=== PATIENT | female | born 1995 | race Asian ===

== ENCOUNTER 2018-06-30 01:13 | Emergency (ER) | payer MEDICAID ==
[~2018-06-30] VITALS: Ht 160 cm; Wt 41.7 kg
[2018-06-30 01:17] VITALS: BP_SYST 110
[2018-06-30 02:18] LABS: BILIRUBIN,URINE 1+ (NEGATIVE); CLARITY/URINE CLEAR (CLEAR); COLOR,URINE YELLOW (YELLOW); GLUCOSE,URINE NEGATIVE (NEGATIVE); KETONES,URINE 1+ (NEGATIVE); LEUKOCYTE ESTERASE ,URINE NEGATIVE (NEGATIVE); NITRITE, URINE NEGATIVE (NEGATIVE); PROTEIN URINE NEGATIVE (NEGATIVE); UROBILINOGEN,URINE 0.2 (0.2-1.0)
[2018-06-30 02:19] LABS: BLOOD, URINE TRACE (NEGATIVE)
[2018-06-30 02:24] LABS: HEMATOCRIT 32.6 % (36-48); HEMOGLOBIN 10.3 g/dL (12.0-16.0); MEAN CORPUSCULAR HEMOGLOBIN 19 pg (27-31); MEAN CORPUSCULAR HGB CONC 32 % (32-36); MEAN CORPUSCULAR VOLUME 60 fL (79.0-98.0); PLATELET COUNT (AUTO) 327 K/uL (130-430); RED BLOOD CELL COUNT(AUTO) 5.46 MIL/uL (4.2-6.2); RED CELL DISTRIBUTION WIDTH 16.2 % (9.0-15.0)
[2018-06-30 02:25] LABS: BASOPHILS # (AUTO) 0.1 K/uL (0.0-0.2); BASOPHILS % (AUTO) 0.7 % (0.0-2.0); LYMPHOCYTES # (AUTO) 1.6 K/uL (1.0-5.5); LYMPHOCYTES % (AUTO) 18.1 % (20.5-51.5); MONOCYTES # (AUTO) 0.8 K/uL (0.0-1.0); MONOCYTES % (AUTO) 8.5 % (1.7-9.3); NEUTROPHILS # (AUTO) 6.5 K/uL (1.8-7.7); NEUTROPHILS % (AUTO) 72.7 % (40.0-70.0)
[2018-06-30 02:37] LABS: BACTERIA,URINE FEW /HPF (None Seen)
[2018-06-30 02:44] LABS: CALCIUM 9.3 mg/dL (8.4-11.0); CREATININE 0.72 mg/dL (0.55-1.30); POTASSIUM 3.5 mmol/L (3.5-5.1)
[2018-06-30 02:50] LABS: ALBUMIN 3.6 g/dL (3.4-4.8); TOTAL BILIRUBIN 0.8 mg/dL (0.0-1.0)
[2018-06-30 03:16] VITALS: BP_SYST 118
== END 2018-06-30 03:16 | disposition home or self-care (01) ==
LOC: SED 01:13
DX: R11.10 Vomiting, unspecified (principal); R50.9 Fever, unspecified
CPT/HCPCS: 36415; 80053; 81000-TC; 85025; 86710; 99283

== ENCOUNTER 2018-10-13 23:22 | Emergency (ER) | payer MEDICAID ==
[~2018-10-13] VITALS: Ht 160 cm; Wt 41.3 kg
[2018-10-13 23:30] VITALS: BP_SYST 130
== END 2018-10-14 00:28 | disposition left against medical advice (07) ==
LOC: SED 23:22
DX: R10.9 Unspecified abdominal pain (principal); R30.0 Dysuria; R35.0 Frequency of micturition; R11.10 Vomiting, unspecified; Z53.21 Procedure and treatment not carried out due to patient leaving prior to being seen by health care provider

== ENCOUNTER 2018-10-18 23:11 | Emergency (ER) | payer MEDICAID ==
[~2018-10-18] VITALS: Ht 154.9 cm; Wt 49.9 kg
[2018-10-18 23:20] VITALS: BP_SYST 135
[2018-10-18] MEDS ORDERED: NACL 0.9% 1,000 ML IV ONE (23:43)
[2018-10-18] MEDS ORDERED: PANTOPRAZOLE SODIUM 40 MG/VIAL (PROTONIX) IVP ONE (23:45)
[2018-10-19 00:13] LABS: BILIRUBIN,URINE NEGATIVE (NEGATIVE); BLOOD, URINE NEGATIVE (NEGATIVE); CLARITY/URINE SL HAZY (CLEAR); COLOR,URINE YELLOW (YELLOW); GLUCOSE,URINE NEGATIVE (NEGATIVE); KETONES,URINE NEGATIVE (NEGATIVE); LEUKOCYTE ESTERASE ,URINE NEGATIVE (NEGATIVE); NITRITE, URINE NEGATIVE (NEGATIVE); PH,URINE 5.5 (5.0-8.0); PROTEIN URINE NEGATIVE (NEGATIVE); UROBILINOGEN,URINE 0.2 (0.2-1.0)
[2018-10-19 00:31] LABS: HEMOGLOBIN 11.3 g/dL (12.0-16.0); MEAN CORPUSCULAR HGB CONC 32 % (32-36); RED BLOOD CELL COUNT(AUTO) 5.75 MIL/uL (4.2-6.2); WHITE BLOOD COUNT (AUTO) 7.1 K/uL (4.8-10.8)
[2018-10-19 00:43] LABS: CREATININE 0.62 mg/dL (0.55-1.30); POTASSIUM 3.8 mmol/L (3.5-5.1)
[2018-10-19 00:46] LABS: BASOPHILS # (AUTO) 0.1 K/uL (0.0-0.2); BASOPHILS % (AUTO) 0.7 % (0.0-2.0); EOSINOPHILS # (AUTO) 0.1 K/uL (0.0-0.4); EOSINOPHILS % (AUTO) 1.4 % (0.0-4.0); HEMATOCRIT 35.5 % (36-48); LYMPHOCYTES # (AUTO) 3.4 K/uL (1.0-5.5); LYMPHOCYTES % (AUTO) 48.5 % (20.5-51.5); MEAN CORPUSCULAR HEMOGLOBIN 20 pg (27-31); MEAN CORPUSCULAR VOLUME 62 fL (79.0-98.0); MONOCYTES # (AUTO) 0.5 K/uL (0.0-1.0); MONOCYTES % (AUTO) 7.1 % (1.7-9.3); NEUTROPHILS % (AUTO) 42.3 % (40.0-70.0); PLATELET COUNT (AUTO) 320 K/uL (130-430); RED CELL DISTRIBUTION WIDTH 16.3 % (9.0-15.0)
[2018-10-19 00:49] LABS: ALBUMIN 4.1 g/dL (3.4-4.8); TOTAL BILIRUBIN 0.8 mg/dL (0.0-1.0)
[2018-10-19] MEDS ORDERED: IOHEXOL 100 ML IV ONE (01:03)
[2018-10-19 01:52] VITALS: BP_SYST 124
== END 2018-10-19 01:52 | disposition home or self-care (01) ==
LOC: SED 23:11
DX: R10.31 Right lower quadrant pain (principal); R10.32 Left lower quadrant pain
CPT/HCPCS: 36415; 74177; 80053; 81003; 81025; 83690; 85025; 96361; 96374; 99284; C9113; J7030; Q9967

== ENCOUNTER 2019-01-31 00:43 | Emergency (ER) | payer MEDICAID ==
[~2019-01-31] VITALS: Ht 160 cm; Wt 40.8 kg
[2019-01-31 00:43] VITALS: BP_SYST 114
--- NOTE | 2019-01-31 00:43 | NUR ---
Patient to ER bed 08 to gown for evaluation. Side rails up.
--- NOTE | 2019-01-31 00:58 | NUR ---
Pt is AAO x 4 and ambulatory c/o centralized abdominal pain that started around 8pm. Pt states she has had about 5-6 episodes of vomiting. Per pt, after vomiting abdomen feels a little better but then comes back right before vomiting. Pt denies fever, dysura, and diarrhea/constipation. No other injuries/complaints per patient or noted.
--- NOTE | 2019-01-31 01:00 | NUR ---
Dr. Vences at bedside.
[2019-01-31] MEDS ORDERED: NACL 0.9% 1,000 ML IV ONE (01:09)
[2019-01-31] MEDS ORDERED: KETOROLAC TROMETHAMINE 15 MG VIAL IVP ONE (01:15)
[2019-01-31] MEDS ORDERED: ONDANSETRON HCL 4 MG/2 ML VIAL IVP ONE (01:15)
[2019-01-31 01:41] LABS: MEAN CORPUSCULAR VOLUME 62 fL (79.0-98.0); MONOCYTES # (AUTO) 0.5 K/uL (0.0-1.0)
[2019-01-31 01:46] LABS: BASOPHILS % (AUTO) 0.3 % (0.0-2.0); HEMATOCRIT 33.2 % (36-48); HEMOGLOBIN 10.8 g/dL (12.0-16.0); LYMPHOCYTES # (AUTO) 1.5 K/uL (1.0-5.5); LYMPHOCYTES % (AUTO) 14.1 % (20.5-51.5); MEAN CORPUSCULAR HEMOGLOBIN 20 pg (27-31); MEAN CORPUSCULAR HGB CONC 33 % (32-36); MONOCYTES % (AUTO) 4.6 % (1.7-9.3); NEUTROPHILS # (AUTO) 8.8 K/uL (1.8-7.7); PLATELET COUNT (AUTO) 289 K/uL (130-430); RED BLOOD CELL COUNT(AUTO) 5.38 MIL/uL (4.2-6.2); RED CELL DISTRIBUTION WIDTH 16.1 % (9.0-15.0); WHITE BLOOD COUNT (AUTO) 10.9 K/uL (4.8-10.8)
[2019-01-31 01:54] LABS: ALBUMIN 3.7 g/dL (3.4-4.8); CALCIUM 8.3 mg/dL (8.4-11.0); CREATININE 0.61 mg/dL (0.55-1.30); POTASSIUM 3.1 mmol/L (3.5-5.1); TOTAL BILIRUBIN 1.3 mg/dL (0.0-1.0)
--- NOTE | 2019-01-31 02:22 | NUR ---
Pt resting comfortably in bed. No acute distress, will continue to monitor.
[2019-01-31] MEDS ORDERED: NS 500 ML IV ONE (02:30)
[2019-01-31] MEDS ORDERED: POTASSIUM CHLORIDE 20 MEQ TAB.PRT.SR PO ONE (02:30)
[2019-01-31] MEDS ORDERED: DICYCLOMINE HCL 20 MG/2 ML AMP IM ONE (02:30)
--- NOTE | 2019-01-31 03:15 | NUR ---
Patient states she feels better and has no pain. Dr. Vences made aware.
[2019-01-31 03:27] VITALS: BP_SYST 113
--- NOTE | 2019-01-31 03:27 | NUR ---
Patient given written and verbal discharge instructions and verbalizes understanding. ER MD discussed with patient the results and treatment provided. Patient in stable condition. ID arm band removed. IV catheter removed intact and dressing applied, no active bleeding. Rx of Mylanta and Zofran given. Patient educated on pain management and to follow up with PMD. Pain Scale 0. Opportunity for questions provided and answered. Medication side effect fact sheet provided.
== END 2019-01-31 03:27 | disposition home or self-care (01) ==
LOC: SED 00:43
DX: R10.84 Generalized abdominal pain (principal); R11.2 Nausea with vomiting, unspecified
CPT/HCPCS: 36415; 80053; 81002; 81025; 83690; 85025; 96361; 96372; 96374; 96375; 99283; J0500; J1885; J2405; J7030; J7040

== ENCOUNTER 2019-06-08 16:33 | Emergency (ER) | payer MEDICAID ==
[~2019-06-08] VITALS: Ht 160 cm; Wt 49.9 kg
[2019-06-08 16:57] VITALS: BP_SYST 137
--- NOTE | 2019-06-08 17:04 | NUR ---
PATIENT TO WAITING AREA STABLE, UNCHANGED
--- NOTE | 2019-06-08 18:12 | NUR ---
PATIENT TO ER #7
--- NOTE | 2019-06-08 18:22 | NUR ---
Patient is A&O x 4 and ambulated to ER bed 7. Patient complains of abdominal pain, fever, headache, and pain in her ears that started last night. Patients states that when she looks downward she starts to feel like "the room is spinning". Patient complains of nausea and vomiting. Patient states she has thrown up five times since pain has started. Patient states her abdominal pain is constant and is located in the middle of her abdomen and rates it a 7 out of 10. Patient had her last meal last night at 11:30 and it was a typical meal that she eats. Patient states she has not had an appetite since. Patient denies any burning or pain when she urinates. Patient last menstrual period was 05/13/2019.
--- NOTE | 2019-06-08 18:22 | NUR ---
ER Dr. Jones at bedside examining patient.
[2019-06-08] MEDS ORDERED: NACL 0.9% 1,000 ML IV ONE (18:26)
[2019-06-08] MEDS ORDERED: KETOROLAC TROMETHAMINE 30 MG VIAL IVP ONE (18:30)
--- NOTE | 2019-06-08 18:42 | NUR ---
# 20 gauge angiocath placed to RAC. Use of asceptic technique. Opsite placed over site. Blood return noted. Blood, BLOOD CULTURES, AND LACTIC for lab drawn from site. Flushed with 10 cc of normal saline. No evidence of infiltration noted. Patient tolerated well.
[2019-06-08 19:18] LABS: BASOPHILS # (AUTO) 0.1 K/uL (0.0-0.2); BASOPHILS % (AUTO) 0.9 % (0.0-2.0); EOSINOPHILS # (AUTO) 0.1 K/uL (0.0-0.4); EOSINOPHILS % (AUTO) 0.9 % (0.0-4.0); HEMATOCRIT 38.4 % (36-48); HEMOGLOBIN 12.5 g/dL (12.0-16.0); LYMPHOCYTES # (AUTO) 3.1 K/uL (1.0-5.5); LYMPHOCYTES % (AUTO) 41.5 % (20.5-51.5); MEAN CORPUSCULAR HEMOGLOBIN 20 pg (27-31); MEAN CORPUSCULAR HGB CONC 33 % (32-36); MEAN CORPUSCULAR VOLUME 62 fL (79.0-98.0); MONOCYTES # (AUTO) 0.5 K/uL (0.0-1.0); MONOCYTES % (AUTO) 6.1 % (1.7-9.3); NEUTROPHILS # (AUTO) 3.8 K/uL (1.8-7.7); NEUTROPHILS % (AUTO) 50.6 % (40.0-70.0); PLATELET COUNT (AUTO) 358 K/uL (130-430); RED BLOOD CELL COUNT(AUTO) 6.18 MIL/uL (4.2-6.2); RED CELL DISTRIBUTION WIDTH 16.4 % (9.0-15.0); WHITE BLOOD COUNT (AUTO) 7.4 K/uL (4.8-10.8)
[2019-06-08 20:03] LABS: POTASSIUM 3.7 mmol/L (3.5-5.1)
[2019-06-08 20:04] LABS: CALCIUM 9.3 mg/dL (8.4-11.0); CREATININE 0.63 mg/dL (0.55-1.30)
[2019-06-08 20:43] LABS: ALBUMIN 4.7 g/dL (3.4-4.8); TOTAL BILIRUBIN 1.2 mg/dL (0.0-1.0)
[2019-06-09] MEDS ORDERED: MAG HYDROX/AL HYDROX/SIMETH 30 ML, LIDOCAINE VISCOUS 2% 15ML (PO) 10 ML, DICYCLOMINE HC... PO ONE ×3 (03:00)
--- NOTE | 2019-06-09 03:24 | NUR ---
Pt laying comfortably in bed with no signs of distress
--- NOTE | 2019-06-09 03:34 | NUR ---
Report given to ANTHONY Arellano. All care assumed.
--- NOTE | 2019-06-09 04:00 | NUR ---
Pt resting in ED bed comfortably. No Distress at this time.
[2019-06-09 04:40] VITALS: BP_SYST 128
--- NOTE | 2019-06-09 04:40 | NUR ---
Patient given written and verbal discharge instructions and verbalizes understanding. ER MD discussed with patient the results and treatment provided. Patient in stable condition. ID arm band removed. IV catheter removed intact and dressing applied, no active bleeding. Rx of Zofran and Protonix given. Patient educated on pain management and to follow up with PMD. Pain Scale 0/10. Opportunity for questions provided and answered. Medication side effect fact sheet provided.
== END 2019-06-09 04:40 | disposition home or self-care (01) ==
LOC: SED 16:33
DX: K29.70 Gastritis, unspecified, without bleeding (principal); R10.33 Periumbilical pain; R11.2 Nausea with vomiting, unspecified
CPT/HCPCS: 36415; 74176; 80053; 81025; 85025; 87040; 96361; 96374; 99284; J1885; J2001; J7030

== ENCOUNTER 2019-06-25 18:03 | Emergency (ER) | payer MEDICAID ==
[~2019-06-25] VITALS: Ht 160 cm; Wt 40.8 kg
[2019-06-25 18:07] VITALS: BP_SYST 107
[2019-06-25] MEDS ORDERED: MECLIZINE HCL 25 MG TABLET (ANITVERT) PO ONE (18:45)
[2019-06-25] MEDS ORDERED: ACETAMINOPHEN 325 MG TABLET PO ONE (18:45)
[2019-06-25 19:03] LABS: BASOPHILS % (AUTO) 0.5 % (0.0-2.0); EOSINOPHILS % (AUTO) 0.5 % (0.0-4.0); HEMATOCRIT 34.9 % (36-48); HEMOGLOBIN 11.1 g/dL (12.0-16.0); LYMPHOCYTES # (AUTO) 2.5 K/uL (1.0-5.5); LYMPHOCYTES % (AUTO) 30.3 % (20.5-51.5); MEAN CORPUSCULAR HEMOGLOBIN 20 pg (27-31); MEAN CORPUSCULAR HGB CONC 32 % (32-36); MEAN CORPUSCULAR VOLUME 62 fL (79.0-98.0); MONOCYTES # (AUTO) 0.8 K/uL (0.0-1.0); NEUTROPHILS # (AUTO) 4.8 K/uL (1.8-7.7); NEUTROPHILS % (AUTO) 58.7 % (40.0-70.0); PLATELET COUNT (AUTO) 353 K/uL (130-430); RED BLOOD CELL COUNT(AUTO) 5.64 MIL/uL (4.2-6.2); WHITE BLOOD COUNT (AUTO) 8.2 K/uL (4.8-10.8)
[2019-06-25 19:09] LABS: BILIRUBIN,URINE NEGATIVE (NEGATIVE); CLARITY/URINE CLEAR (CLEAR); COLOR,URINE YELLOW (YELLOW); GLUCOSE,URINE NEGATIVE (NEGATIVE); KETONES,URINE NEGATIVE (NEGATIVE); LEUKOCYTE ESTERASE ,URINE NEGATIVE (NEGATIVE); NITRITE, URINE NEGATIVE (NEGATIVE); PROTEIN URINE NEGATIVE (NEGATIVE); UROBILINOGEN,URINE 0.2 (0.2-1.0)
[2019-06-25 19:35] LABS: BLOOD, URINE TRACE (NEGATIVE)
[2019-06-25 19:38] LABS: CALCIUM 9.3 mg/dL (8.4-11.0); CREATININE 0.65 mg/dL (0.55-1.30); POTASSIUM 4.3 mmol/L (3.5-5.1)
[2019-06-25 19:39] LABS: PROTHROMBIN TIME 10.5 SECS (9.5-12.5)
[2019-06-25 19:41] LABS: RBC,URINE 0-3 /HPF (0-3)
[2019-06-25 19:42] LABS: BACTERIA,URINE MODERATE /HPF (None Seen)
[2019-06-25 19:49] LABS: TOTAL BILIRUBIN 0.8 mg/dL (0.0-1.0)
[2019-06-25 19:50] LABS: ALBUMIN 3.9 g/dL (3.4-4.8)
[2019-06-25] MEDS ORDERED: SULFAMETHOXAZOLE/TRIMETHOPR DS 1 TABLET PO ONE (20:00)
[2019-06-25 20:01] VITALS: BP_SYST 124
== END 2019-06-25 20:04 | disposition home or self-care (01) ==
LOC: SED 18:03
DX: R42 Dizziness and giddiness (principal); N39.0 Urinary tract infection, site not specified
CPT/HCPCS: 36415; 70450; 80053; 81000; 81025; 83605; 85025; 85610; 87040; 87086; 99284; J8597

== ENCOUNTER 2019-11-24 01:13 | Emergency (ER) | payer MEDICAID ==
[~2019-11-24] VITALS: Ht 160 cm; Wt 38.6 kg
[2019-11-24 01:20] VITALS: BP_SYST 105
--- NOTE | 2019-11-24 01:20 | NUR ---
Patient to ER bed 6 to gown for evaluation. Side rails up. Report given to Shannan CRUZ.
--- NOTE | 2019-11-24 01:24 | NUR ---
Patient to ER bed 6 to gown for evaluation. Side rails up. Report given to Shannan CRUZ.
--- NOTE | 2019-11-24 01:26 | NUR ---
pt a&o x4 of lower abdominal pain and vaginal ithcing started in the last hour. pt states her urine smells and is very yellow. pt is sexually active and does not use protection. pt rates her pain a 6 out of 10. pt states it is painful when she urinates. Addendum: 11/24/19 at 0132 by SAHARA pt denies nausea/vomiting/diarrhea/constipation.
--- NOTE | 2019-11-24 01:30 | NUR ---
ER Dr. Rock at bedside examining patient.
[2019-11-24] MEDS ORDERED: KETOROLAC TROMETHAMINE 60 MG/2 ML VIAL IM ONE (01:45)
--- NOTE | 2019-11-24 02:33 | NUR ---
lab at bedside to draw blood.
[2019-11-24 02:46] LABS: BILIRUBIN,URINE NEGATIVE (NEGATIVE); BLOOD, URINE NEGATIVE (NEGATIVE); CLARITY/URINE CLEAR (CLEAR); COLOR,URINE YELLOW (YELLOW); GLUCOSE,URINE NEGATIVE (NEGATIVE); KETONES,URINE TRACE (NEGATIVE); LEUKOCYTE ESTERASE ,URINE NEGATIVE (NEGATIVE); NITRITE, URINE NEGATIVE (NEGATIVE); PROTEIN URINE NEGATIVE (NEGATIVE); UROBILINOGEN,URINE 0.2 (0.2-1.0)
[2019-11-24 02:46] LABS: BASOPHILS % (AUTO) 0.5 % (0.0-2.0); EOSINOPHILS % (AUTO) 0.6 % (0.0-4.0); HEMATOCRIT 34.5 % (36-48); HEMOGLOBIN 11.1 g/dL (12.0-16.0); LYMPHOCYTES # (AUTO) 2.4 K/uL (1.0-5.5); LYMPHOCYTES % (AUTO) 50.2 % (20.5-51.5); MEAN CORPUSCULAR HEMOGLOBIN 20 pg (27-31); MEAN CORPUSCULAR HGB CONC 32 % (32-36); MEAN CORPUSCULAR VOLUME 61 fL (79.0-98.0); MONOCYTES # (AUTO) 0.3 K/uL (0.0-1.0); MONOCYTES % (AUTO) 6.5 % (1.7-9.3); NEUTROPHILS % (AUTO) 42.2 % (40.0-70.0); PLATELET COUNT (AUTO) 280 K/uL (130-430); RED BLOOD CELL COUNT(AUTO) 5.68 MIL/uL (4.2-6.2); RED CELL DISTRIBUTION WIDTH 16.2 % (9.0-15.0); WHITE BLOOD COUNT (AUTO) 4.7 K/uL (4.8-10.8)
--- NOTE | 2019-11-24 02:55 | NUR ---
Pelvic exam performed by DR. FREEDMAN with ANTHONY RAINES at bedside for entire examination. Patient tolerated procedure WELL. Patient assisted to position of comfort after examination.
[2019-11-24 02:59] LABS: CALCIUM 9.2 mg/dL (8.4-11.0); CREATININE 0.56 mg/dL (0.55-1.30); POTASSIUM 3.7 mmol/L (3.5-5.1)
--- NOTE | 2019-11-24 03:00 | NUR ---
WET MOUNT COLLECTED BY DR FREEDMAN DURING PELVIC EXAM AND SENT TO LAB.
[2019-11-24 03:04] LABS: TOTAL BILIRUBIN 1.6 mg/dL (0.0-1.0)
[2019-11-24] MEDS ORDERED: AZITHROMYCIN 250 MG TABLET PO ONE (03:30)
[2019-11-24] MEDS ORDERED: cefTRIAXone 250 MG in LIDOCAINE 1%, 20 ML MDV 0.9 ML IM ONE (03:30)
[2019-11-24 04:05] VITALS: BP_SYST 128
--- NOTE | 2019-11-24 04:05 | NUR ---
Patient given written and verbal discharge instructions and verbalizes understanding. ER MD discussed with patient the results and treatment provided. Patient in stable condition. ID arm band removed. Rx of FLAGYL given. Patient educated on pain management and to follow up with PMD. Pain Scale 0/10. Opportunity for questions provided and answered. Medication side effect fact sheet provided.
[2019-11-26 23:06] LABS: CHLAMYDIA TRACHOMATIS NAA Negative (Negative); NEISSERIA GONORRHOEAE NAA Negative (Negative)
== END 2019-11-24 04:05 | disposition home or self-care (01) ==
LOC: SED 01:13
DX: N76.0 Acute vaginitis (principal); B96.89 Other specified bacterial agents as the cause of diseases classified elsewhere; R10.33 Periumbilical pain
CPT/HCPCS: 36415; 80053; 81003; 81025; 83690; 85025; 87210; 87491; 87591; 96372; 99284; J0696; J1885; J2001; Q0144

== ENCOUNTER 2020-03-03 12:50 | Emergency (ER) | payer OTHER, MEDICAID ==
[~2020-03-03] VITALS: Ht 160 cm; Wt 41.3 kg
[2020-03-03 12:55] VITALS: BP_SYST 125
--- NOTE | 2020-03-03 13:00 | NUR ---
BROUGHT BACK TO BED #4 AND TRIAGED. REPORT GIVEN TO CEASAR
--- NOTE | 2020-03-03 13:10 | NUR ---
ER DR. THAPA AT THE BEDSIDE EVALUATING PT
--- NOTE | 2020-03-03 13:15 | NUR ---
PT CAME TO ER FROM HOME WITH C/O ABD X1 WEEK. PAIN IS LOCATED MID-LOWER THROBBING AROUND UMBILICAS. REPORTS SOME ITCHING WHILE BURNING. DENIES ANY OTHER MEDICAL HX. PT IS AAOX4, V/S STABLE
[2020-03-03 14:21] LABS: CALCIUM 9.2 mg/dL (8.4-11.0); CREATININE 0.51 mg/dL (0.55-1.30); POTASSIUM 4.7 mmol/L (3.5-5.1)
[2020-03-03 14:27] LABS: BASOPHILS % (AUTO) 0.8 % (0.0-2.0); EOSINOPHILS % (AUTO) 0.9 % (0.0-4.0); HEMOGLOBIN 11.6 g/dL (12.0-16.0); LYMPHOCYTES # (AUTO) 2.2 K/uL (1.0-5.5); LYMPHOCYTES % (AUTO) 42.8 % (20.5-51.5); MEAN CORPUSCULAR HEMOGLOBIN 19 pg (27-31); MEAN CORPUSCULAR HGB CONC 31 % (32-36); MEAN CORPUSCULAR VOLUME 63 fL (79.0-98.0); MONOCYTES # (AUTO) 0.3 K/uL (0.0-1.0); MONOCYTES % (AUTO) 5.5 % (1.7-9.3); NEUTROPHILS # (AUTO) 2.6 K/uL (1.8-7.7); PLATELET COUNT (AUTO) 325 K/uL (130-430); RED BLOOD CELL COUNT(AUTO) 6.06 MIL/uL (4.2-6.2); RED CELL DISTRIBUTION WIDTH 17.1 % (9.0-15.0); WHITE BLOOD COUNT (AUTO) 5.2 K/uL (4.8-10.8)
[2020-03-03 14:27] LABS: ALBUMIN 4.6 g/dL (3.4-4.8); TOTAL BILIRUBIN 1.9 mg/dL (0.0-1.0)
[2020-03-03] MEDS ORDERED: HYDROcodone/ACETAMIN 5-325 MG TAB (NORCO/ VICODIN) PO ONE (14:45)
[2020-03-03] MEDS ORDERED: HYDROcodone/ACETAMIN 5-325 MG TAB (NORCO/ VICODIN) ONE (14:56)
--- NOTE | 2020-03-03 15:45 | NUR ---
PT REPORTS RELIEF FROM PAIN
[2020-03-03 15:47] VITALS: BP_SYST 128
--- NOTE | 2020-03-03 15:51 | NUR ---
Patient given written and verbal discharge instructions and verbalizes understanding. ER MD discussed with patient the results and treatment provided. Patient in stable condition. ID arm band removed. Patient educated on pain management and to follow up with PMD. Pain Scale 0/10. Opportunity for questions provided and answered. Medication side effect fact sheet provided.
== END 2020-03-03 15:51 | disposition home or self-care (01) ==
LOC: SED 12:50
DX: R10.13 Epigastric pain (principal)
CPT/HCPCS: 36415; 80053; 81002; 81025; 83690-TC; 85025; 99283